=== PATIENT | male | born 1955 | race Caucasian/White ===

== ENCOUNTER 2019-02-03 17:21 | Emergency (ER) | payer BC ==
[~2019-02-03] VITALS: Ht 190.5 cm; Wt 122.0 kg
[2019-02-03 17:40] VITALS: Ht 190.5 cm; Wt 122.0 kg
[2019-02-03 18:49] LABS: BASOPHIL % 0.6 % (0-2)
[2019-02-03 18:53] LABS: CALCIUM 7.9 mg/dL (8.5-10.1); CARBON DIOXIDE 23.7 mmol/L (21-32); CHLORIDE SERUM 104 mmol/L (98-107); CREATININE SERUM 0.8 mg/dL (0.7-1.3); GFR1 > 60 mL/min; GLUCOSE SERUM 153 mg/dL (74-106); POTASSIUM SERUM 3.5 mmol/L (3.5-5.1); SODIUM SERUM 137 mmol/L (136-145)
[2019-02-03 18:57] LABS: ALBUMIN 2.9 g/dL (3.4-5.0); ALKALINE PHOSPHATASE 109 U/L (46-116); ALT/SGPT 226 U/L (16-63); AST/SGOT 128 U/L (15-37); BILIRUBIN TOTAL 5.32 mg/dL (0.20-1.00); LIPASE 172 IU/L (73-393); TOTAL PROTEIN, SERUM 5.7 g/dL (6.4-8.2)
[2019-02-03 19:03] LABS: PLATELET COUNT 45 x10^3mcL (130-400); RED CELL DISTRIBUTION WIDTH 17.7 % (11.5-14.5)
[2019-02-03 19:22] VITALS: BP 150/70
== END 2019-02-03 20:39 | disposition home or self-care (01) ==
LOC: ED 17:21
PROVIDERS: Emergency Medicine
DX: K74.60 Unspecified cirrhosis of liver (principal); R18.8 Other ascites; I10 Essential (primary) hypertension; Z90.49 Acquired absence of other specified parts of digestive tract; Z98.890 Other specified postprocedural states; Z79.899 Other long term (current) drug therapy
CPT/HCPCS: 36415